=== PATIENT | male | born 1960 | race Caucasian/White ===

== ENCOUNTER 2021-04-14 07:44 | Outpatient (REF) | payer BC, SELFPAY ==
--- NOTE | ~2021-04-14 | XR_ITS ---
EXAMINATION: XR CERVICAL SPINE CLINICAL INFORMATION: Neck pain. COMPARISON: None TECHNIQUE: 3 views of the cervical spine were obtained. FINDINGS: There is mild rightward tilting cervical spine on frontal view with normal cervical lordosis. The vertebral bodies are normal in height. There is no cervical vertebral compression, disc narrowing, spondylolisthesis, or destructive process. No prevertebral soft tissue swelling. No erosive changes. There is some borderline anterior vertebral spurring at C5-C6. XR/XR cervical spine 3V IMPRESSION: Unremarkable examination.
[2021-04-14 11:27] LABS: MANUAL DIFF FLAG NO
[2021-04-14 11:41] LABS: Basophils Percent Auto 0.4 % (0-2); Eosinophils Absolute Auto 0.1 X10*3/uL (0.0-0.4); Hematocrit 43.5 % (42-52); Hemoglobin 14.4 g/dl (14.0-18.0); Imm Gran Abs Auto 0.01 X10*3/uL (0.00-0.03); Imm Gran Pct Auto 0.1 % (0.0-0.4); Lymphocytes Absolute Auto 3.4 X10*3/uL (1.2-4.9); Mean Corpuscular HGB Conc 33.1 g/dl (31.0-36.0); Mean Corpuscular Hemoglobin 32.1 pg (27.0-33.0); Mean Corpuscular Volume 96.9 fL (80-98); Mean Platelet Volume 12.1 fL (9.4-12.4); Monocytes Absolute Auto 0.5 X10*3/uL (0.1-1.2); Neutrophils Absolute Auto 2.7 X10*3/uL (2.0-8.3); Neutrophils Percent Auto 40.5 % (45-73); Platelet Count 232 X10*3/uL (160-400); Red Blood Count 4.49 X10*6/uL (4.60-5.80); Red Cell Distribution Width 13.5 % (11.0-16.0); White Blood Count 6.7 X10*3/uL (4.8-10.8)
[2021-04-14 11:53] LABS: Alanine Aminotransferase 14 U/L (0-40); Albumin Level 4.3 g/dL (3.5-5.0); Alkaline Phosphatase 45 U/L (39-117); Anion Gap 9 (12-20); Aspartate Amino Transferase 17 U/L (5-37); Bilirubin Total 0.5 mg/dL (0.0-1.0); Blood Urea Nitrogen 14 mg/dL (9-16); Calcium 8.7 mg/dL (8.4-10.2); Carbon Dioxide 31 mmol/L (22-29); Chloride 105 mmol/L (96-108); Cholesterol 137 mg/dL; Estimated Glomerular Filt Rate > 60; Glucose Fasting 92 mg/dL (60-99); HDL Cholesterol 51 mg/dL; LDL Cholesterol Calculated 77 mg/dl; Potassium 4.5 mmol/L (3.3-5.1); Sodium 140 mmol/L (135-145); Total Protein 6.8 g/dL (6.5-8.0); Triglycerides 46 mg/dL
[2021-04-14 12:11] LABS: Thyroid Stimulating Hormone 1.01 uIU/mL (0.32-4.0); Vitamin D 25-OH Total 26.6 ng/mL (>30)
[2021-04-14 12:27] LABS: Vitamin B12 710 pg/mL (200-900)
[2021-04-19 12:46] LABS: Testosterone, Total 450 ng/dL (250-1100)
== END 2021-04-14 07:45 | disposition home or self-care (01) ==
LOC: HO.HMGCX 07:44
PROVIDERS: PCP Internal Medicine; Visit Provider Nurse Practitioner Family
DX: E29.1 Testicular hypofunction (principal); R63.6 Underweight; M54.2 Cervicalgia
CPT/HCPCS: 36415; 72040; 80053; 80061; 82306; 82607; 82746; 84134; 84403; 84443; 85025

== ENCOUNTER 2023-04-10 09:16 | Outpatient (AMB) | payer OTHER, SELFPAY ==
--- NOTE | 2023-04-10 10:15 | AM.OFFWIN_ITS ---
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 Reporting symptoms of sinus congestion, sore throat and difficulty swallowing. Low-grade fever. No family member is sick. No recent travel. Patient reports symptoms of malaise and fatigue. PFSH Social History Patient Tobacco Use Status: Never used Tobacco Physical Exam Vital Signs: Last Vital Signs Temp 97.9 F 04/10/23 10:22 Pulse 64 04/10/23 10:22 BP 108/56 L 04/10/23 10:22 Pulse Ox 96 04/10/23 10:22 Oxygen Delivery Method Room Air 04/10/23 10:22 Const General: cooperative and healthy appearing Nutritional Appearance: well nourished Orientation/consciousness: patient oriented x3 Limitations: no limitations HEENT Head: Yes normal to inspection Eyes General: appearance normal, both eyes and all related structures Neck Neck: Yes normal visual inspection Chest Chest palpation & inspection: normal palpation of entire chest wall Resp Effort & Inspection: normal respiratory effort Neuro General: patient oriented x3 Results AMB Rapid Strep AMB Rapid Strep Negative Last Edit by FELICIA Cordero on 04/10/23 10:32 Results Reviewed Results Reviewed: Laboratory Last Values Strep Scn Rapid Clinic Negative 04/10/23 10:31 Assessment & Plan Assessment & Plan (1) Upper respiratory tract infection: Code(s): J06.9 - Acute upper respiratory infection, unspecified Plan: Increase fluid intake. Tylenol for aches and pains. If symptoms worsen, follow-up here for a recheck. Strep test is negative. No antibiotics needed. Orders: Orders AMB Rapid Strep Screen Today Z13.9 - Encounter for screening, unspecified Coding Level of Care Code Est Pt Level 3 (73037) Diagnoses Upper respiratory tract infection J06.9
[2023-04-10 10:22] VITALS: BP 108/56; PULSE 64; TEMP 36.6; O2SAT 96
== END 2023-04-10 10:44 | disposition home or self-care (01) ==
PROVIDERS: PCP Internal Medicine; Visit Provider Internal Medicine
DX: Z13.9 Encounter for screening, unspecified (principal); J06.9 Acute upper respiratory infection, unspecified
CPT/HCPCS: 87880; 99213

== ENCOUNTER 2023-10-18 14:20 | Outpatient (AMB) | payer OTHER, SELFPAY ==
[2023-10-18 14:32] VITALS: BP 100/62; PULSE 68; O2SAT 98; BMI 19.8
--- NOTE | 2023-10-18 14:32 | MHC.PC.OV ---
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 Intake Note: Pt is here to est care Pt had colon screening with Dr Voss 3 years and he thinks he is on the 10 year plan Allergies No Known Allergies Allergy (Unverified 10/18/23 14:34) Medication List - Last Reconciled 10/18/23 by FAIZA Ahumada- testosterone cypionate 200 mg IM Q3W Tobacco use date assessed: 10/18/23 Dental Screening Dental Screen Date: 10/18/23 Did you have a dental visit in the last 12 months?: Yes Did you have a dental problem in the last 6 months where you did not have access to dental care?: No HPI 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 Will order labs. colon screen approx 3 years ago, i'm on the ten year list . Pt reports having a gluten allergy . Pt denies any n/v/d currently. He is upset because i cannot gain weight . Pt denied ever smoking. testicular cancer Hx. both testicles were removed 42 years ago, on testosterone injections. I did explain to him, having low T, which could stall muscle growth. Pt has a urologist, working with his Testosterone therapy. Pt reports several skin lesions throughout his entire body. Will refer to derm. [facility] Medical History (Updated 10/18/23 @ 17:46 by JOSE Ahumada) Low testosterone Social History Housing: House Patient Tobacco Use Status: Never used Tobacco e-Cigarette/Vaping Use: Never Used Second Hand Smoke Exposure: No service: No Current occupational status: employed Current occupation: [employer] Current occupational exposures/hazards: No Cognitive needs: No Hearing needs: No Vision needs: No Questionnaire PHQ-9 Over the last 2 weeks, how often have you been bothered by any of the following problems? 1. Little interest or pleasure in doing things: not at all 2. Feeling down, depressed, or hopeless: several days 3. Trouble falling or staying asleep, or sleeping too much: not at all 4. Feeling tired or having little energy: more than half the days 5. Poor appetite or overeating: not at all 6. Feeling bad about yourself - or that you are a failure or have let yourself or your family down: not at all 7. Trouble concentrating on things, such as reading the newspaper or watching television: not at all 8. Moving or speaking so slowly that other people could have noticed. Or the opposite - being so fidgety or restless that you have been moving around a lot more than usual: not at all 9. Thoughts that you would be better off or of hurting yourself in some way: not at all Total score: 3 Depression Screening Interpretation: Negative Depression Screening Done: Yes 78753 - PHQ-9 Billing: Yes Source: Developed by Drs. Viktor Cruz, Cecy Jauregui, Stevo Kraft and colleagues, with an educational ino from [employer]. Thrive Questionnaire Date Thrive assessed: 10/18/23 I am a: Patient What is your living situation today?: I have a steady place to live Within the past 12 months, did the food you bought not last and you didn't have the money to get more?: Never true Within the past 12 months, did you worry whether your food would run out before you got money to buy more?: Never true Do you have trouble paying for medicines?: No Do you have trouble getting transportation to medical appointments?: No Do you have trouble paying your heating and electricity bill?: No Do you have trouble taking care of your child, family member or friend?: No Do you have trouble with day-to-day activities such as bathing, preparing meals, shopping, managing finances, etc.?: No Are you currently unemployed and looking for a job?: No Are you interested in more education?: No Currently or been in a relationship where the following occur: no concerns reported THRIVE Score: 0 AUDIT C Alcohol Use Questionnaire (AUDIT-C) 1. How often do you have a drink containing alcohol?: 2-4 times a month 2. How many drinks containing alcohol do you have on a typical day when you are drinking?: 1 or 2 3. How often do you have six or more drinks on one occasion?: Never Total Score: 2 Score Reviewed/Action Taken: Yes REANNA-7 AMB Questionnaire REANNA-7 Date REANNA - 7 assessed: 10/18/23 Feeling nervous, anxious, or on edge: 0 = Not at all Not being able to stop or control worryin = Not at all Worrying too much about different things: 1 = Several days Trouble relaxin = Not at all Being so restless that it is hard to sit still: 0 = Not at all Becoming easily annoyed or irritable: 1 = Several days Feeling afraid as if something awful might happen: 1 = Several days Total REANNA-7 score (0-4 normal; 5-9 mild; 10-14 moderate; 15-21 severe): 3 Source: Developed by Drs. Viktor Cruz, Cecy Jauregui, Stevo Kraft and colleagues, with an educational ino from [employer]. REANNA-7 Assessment Billing REANNA-7 Assessment Tool: REANNA-7 Assessment 45451 Review of Systems Const Denies chills and Denies fever(s) Eyes Denies blurry vision ENT Denies vertigo, Denies dizziness and Denies sore throat Card Denies chest pain at rest, Denies chest pain with activity, Denies diaphoresis, Denies dyspnea and Denies dyspnea on exertion Resp Denies cough, Denies dyspnea, Denies dyspnea on exertion and Denies wheezing GI Denies abdominal pain, Denies melena, Denies hematochezia, Denies constipation, Denies diarrhea and Denies loose stools Denies hematuria Musc Denies numbness and Denies tingling Skin/Breast Denies lesions Neuro Denies vertigo, Denies dizziness, Denies numbness and Denies tingling Psych Denies anxiety, Denies depression, Denies homicidal ideation, Denies suicidal ideation and Denies other (substance abuse) Aller/Immun Denies wheezing Physical exam (Primary Care) Vital Signs: Last Vital Signs Pulse 68 10/18/23 14:32 BP 100/62 10/18/23 14:32 Pulse Ox 98 10/18/23 14:32 Oxygen Delivery Method Room Air 10/18/23 14:32 BMI result Body Mass Index 19.8 Tobacco/Smoking Status: Tobacco use Status Tobacco use date assessed 10/18/23 10/18/23 14:39 Patient Tobacco Use Status Never used Tobacco 10/18/23 14:39 e-Cigarette/Vaping Use Never Used 10/18/23 14:39 PHQ-9: PHQ-9 Score PHQ-9: Total score 3 10/18/23 15:28 Depression Screening Interpretation: Negative Thrive Assessment: Date of Thrive Assessment Date Thrive assessed 10/18/23 10/18/23 15:28 Currently or been in a relationship where the following occur: no concerns reported Const Other: skinny stature General: cooperative Nutritional Appearance: well nourished Orientation/consciousness: patient oriented x3 HENMT Head: Yes normal to inspection, Yes normocephalic and Yes atraumatic Ears: TM's normal bilaterally Eyes General: appearance normal, both eyes and all related structures Alignment and Position: alignment normal and position normal Neck Neck: Yes normal visual inspection and Yes no lymphadenopathy Thyroid: Thyroid normal Resp Effort & Inspection: normal respiratory effort Auscultation: clear to auscultation bilaterally Cardio Rate: regular rate Rhythm: regular rhythm Heart sounds: S1 normal heart sound present, S2 normal heart sound present and no murmurs GI Palpation (GI): Soft to palpation and nontender Auscultation: normal bowel sounds Skin Other: several lesions throughout entire body/upper torso, dry, ranging from skin color to darker, some are more papular, some are macular, mostly round Rashes: no rashes Neuro General: patient oriented x3 Romberg Test: Negative Psych Appearance: grossly normal Mental Status: mental status grossly normal Speech and movement: Normal speech and movement present Affect: normal affect Attitude: cooperative Thought process: Normal thought process present Thought content: Normal thought content present Insight: Good insight present (Psych) Judgement: Good judgement present (Psych) Assessment and Plan Assessment & Plan (1) Skin lesions: Code(s): L98.9 - Disorder of the skin and subcutaneous tissue, unspecified Plan: Referred to derm (2) Vitamin D deficiency: Code(s): E55.9 - Vitamin D deficiency, unspecified (3) Physical exam: Code(s): Z00.00 - Encounter for general adult medical examination without abnormal findings Plan The patient agreed to the use of a medical device sales for this encounter. Scribed for JOSE Villanueva by Christel Pantoja medical device sales, on 10/18/2023 at 14:55 EST. Orders: Orders Complete Blood Count Auto Diff Today R79.89 - Other specified abnormal findings of blood chemistry Comprehensive [place]. Panel Fast Today R79.89 - Other specified abnormal findings of blood chemistry TSH reflex Free T4 Today R79. - Other specified abnormal findings of blood chemistry UA CC w/rflx Micro + Cult Today R7 - Other specified abnormal findings of blood chemistry Lipid Panel Today R7 - Other specified abnormal findings of blood chemistry Vitamin D 25-OH Total Today E55.9 - Vitamin D deficiency, unspecified Referrals Dermatology Referral L98.9 - Disorder of the skin and subcutaneous tissue, unspecified Coding Level of Care Code New Pt Prev Care 40-64y(21242) Diagnoses Skin lesions L98.9 Vitamin D deficiency E55.9 Physical exam Z00.00 Additional Codes REANNA-7 Assessment Billing - REANNA-7 Assessment Tool: REANNA-7 Assessment [id number] ([id number])
== END 2023-10-18 16:41 | disposition home or self-care (01) ==
PROVIDERS: PCP Internal Medicine; Visit Provider Nurse Practitioner Family
DX: L98.9 Disorder of the skin and subcutaneous tissue, unspecified (principal); E55.9 Vitamin D deficiency, unspecified; Z00.00 Encounter for general adult medical examination without abnormal findings
CPT/HCPCS: 99386

== ENCOUNTER 2023-11-17 06:41 | Outpatient (REF) | payer OTHER, SELFPAY ==
[2023-11-17 11:06] LABS: MANUAL DIFF FLAG NO
[2023-11-17 11:13] LABS: Basophils Percent Auto 0.4 % (0-2); Eosinophils Absolute Auto 0.1 X10*3/uL (0.0-0.4); Eosinophils Percent Auto 0.8 % (0-4); Hematocrit 43.2 % (42.0-52.0); Hemoglobin 14.3 g/dl (14.0-18.0); Imm Gran Abs Auto 0.01 X10*3/uL (0.00-0.03); Imm Gran Pct Auto 0.1 % (0.0-0.4); Lymphocytes Absolute Auto 4.7 X10*3/uL (1.2-4.9); Lymphocytes Percent Auto 58.6 % (20-40); Mean Corpuscular HGB Conc 33.1 g/dl (31.0-36.0); Mean Corpuscular Hemoglobin 32.5 pg (27.0-33.0); Mean Corpuscular Volume 98.2 fL (80.0-98.0); Mean Platelet Volume 11.3 fL (9.4-12.4); Monocytes Absolute Auto 0.5 X10*3/uL (0.1-1.2); Monocytes Percent Auto 6.5 % (2-11); Neutrophils Absolute Auto 2.7 x10*3/uL (2.0-8.3); Neutrophils Percent Auto 33.6 % (45-73); Platelet Count 246 X10*3/uL (160-400); Red Cell Distribution Width 13.6 % (11.0-16.0)
[2023-11-17 11:30] LABS: Appearance Urine Clear; Color Urine Yellow; Glucose Urine UA Negative (Negative); Leukocyte Esterase Urine Negative (Negative); Nitrite Urine Negative (Negative); PH 8.5 (5.0-9.0); Specific Gravity - Urine <= 1.005 (1.005-1.025); Urine Blood Negative (Negative); Urine Ketones Negative (Negative); Urine Protein Negative (Neg-Trace)
[2023-11-17 11:41] LABS: Alanine Aminotransferase 18 U/L (0-40); Albumin Level 4.2 g/dL (3.5-5.0); Alkaline Phosphatase 49 U/L (39-117); Anion Gap 11 (12-20); Aspartate Amino Transferase 24 U/L (5-37); Bilirubin Total 0.4 mg/dL (0.0-1.0); Blood Urea Nitrogen 11 mg/dL (9-16); Calcium 8.9 mg/dL (8.4-10.2); Carbon Dioxide 29 mmol/L (22-29); Chloride 105 mmol/L (96-108); Cholesterol 150 mg/dL (<200); Estimated Glomerular Filt Rate > 60; Glucose Fasting 75 mg/dL (60-99); HDL Cholesterol 57 mg/dL (>40); LDL Cholesterol Calculated 84 mg/dL (<100); Potassium 4.5 mmol/L (3.3-5.1); Sodium 140 mmol/L (135-145); Total Protein 6.8 g/dL (6.5-8.0); Triglycerides 47 mg/dL (<150)
[2023-11-17 11:58] LABS: TSH reflex Free T4 1.31 uIU/mL (0.32-4.0); Vitamin D 25-OH Total 70.1 ng/mL (>30)
== END 2023-11-17 06:42 | disposition home or self-care (01) ==
LOC: HO.HMGCLDS 06:41
PROVIDERS: PCP Nurse Practitioner Family; Visit Provider Nurse Practitioner Family
DX: R79.89 Other specified abnormal findings of blood chemistry (principal); E55.9 Vitamin D deficiency, unspecified
CPT/HCPCS: 36415; 80053; 80061; 81003; 82306; 84443; 85025

== ENCOUNTER 2024-02-02 06:57 | Outpatient (REF) | payer OTHER, SELFPAY ==
[2024-02-02 11:14] LABS: Hematocrit 44.1 % (42.0-52.0); Hemoglobin 14.6 g/dl (14.0-18.0); Mean Corpuscular HGB Conc 33.1 g/dl (31.0-36.0); Mean Corpuscular Hemoglobin 32.4 pg (27.0-33.0); Mean Corpuscular Volume 97.8 fL (80.0-98.0); Mean Platelet Volume 11.6 fL (9.4-12.4); Platelet Count 229 X10*3/uL (160-400); Red Blood Count 4.51 X10*6/uL (4.60-5.80); Red Cell Distribution Width 13.2 % (11.0-16.0); White Blood Count 8.8 X10*3/uL (4.8-10.8)
[2024-02-02 11:46] LABS: Prostate Specific Antigen 2.78 ng/mL (<0.05-4.0)
[2024-02-02 11:56] LABS: Atypical Lymph Absolute Manual 0.5 x10*3/uL; Atypical Lymphs Percent Manual 6 % (0-6); Band Neutrophils Percent 0 % (3-5); Eosinophils Absolute Manual 0.1 X10*3/uL (0.0-0.4); Eosinophils Percent Manual 1 % (0-4); Lymphocytes Percent Manual 57 % (20-40); Monocytes Absolute Manual 0.3 X10*3/uL (0.1-1.2); Monocytes Percent Manual 3 % (2-11); Neutrophils Absolute Manual 2.9 X10*3/uL (2.0-8.3); Neutrophils Percent Manual 33 % (45-73)
[2024-02-02 11:57] LABS: Platelet Estimate NORMAL (NORMAL); Platelet Morphology Comment NORMAL; RBC Morphology NORMAL; Smudge Cells PRESENT
[2024-02-02 12:10] LABS: Prostate Specific Antigen Scr 2.88 ng/mL (<0.05-4.0)
[2024-02-07 15:59] LABS: Testosterone, Total 1109 ng/dL (250-1100)
== END 2024-02-02 06:58 | disposition home or self-care (01) ==
LOC: HO.HMGCLDS 06:57
PROVIDERS: PCP Nurse Practitioner Family; Visit Provider Physician Assistant
DX: Z12.5 Encounter for screening for malignant neoplasm of prostate (principal); E29.1 Testicular hypofunction
CPT/HCPCS: 36415; 84153; 84403; 85007; 85027

== ENCOUNTER 2024-04-14 15:17 | Outpatient (AMB) | payer OTHER, SELFPAY ==
[2024-04-14 15:26] VITALS: BP 108/74; PULSE 61; O2SAT 99; BMI 20.1
--- NOTE | 2024-04-14 15:26 | MHC.PC.OV ---
Vital Signs 04/14/24 15:26 Height 5 ft 9 in Weight 136 lb 2 oz BMI 20.1 BP 108/74 Blood Pressure Location Lt brachial Position Sitting Pulse 61 Pulse Source Pulse Oximeter Pulse Oximetry (%) 99 Oxygen Delivery Method Room Air Intake Visit Reasons: 6 Month F/U Labs Allergies No Known Allergies Allergy (Verified 04/14/24 15:27) Tobacco use date assessed: 04/14/24 Dental Screening Dental Screen Date: 04/14/24 Did you have a dental visit in the last 12 months?: Yes Did you have a dental problem in the last 6 months where you did not have access to dental care?: No Was dental information given to patient?: Patient has dentist HPI 6 Month F/U Labs HPI Details Pt reports bloating. This has been ongoing for quite some time. Pt has taken fiber gummies which make things worse. He also has constipation with certain foods such as meat. Recommended pre/probiotic. Pt is following up with GI, recommended possible endoscopy if this continues. Pt is interested in food allergy testing, will order RAST testing. Denies fever, chills, and N/V. PFSH Medical History Low testosterone Social History Housing: House Patient Tobacco Use Status: Never used Tobacco e-Cigarette/Vaping Use: Never Used Second Hand Smoke Exposure: No service: No Current occupational status: employed Current occupation: [email or web address] Current occupational exposures/hazards: No Cognitive needs: No Hearing needs: No Vision needs: No Questionnaire PHQ-9 Over the last 2 weeks, how often have you been bothered by any of the following problems? 1. Little interest or pleasure in doing things: not at all 2. Feeling down, depressed, or hopeless: not at all 3. Trouble falling or staying asleep, or sleeping too much: not at all 4. Feeling tired or having little energy: several days 5. Poor appetite or overeating: not at all 6. Feeling bad about yourself - or that you are a failure or have let yourself or your family down: not at all 7. Trouble concentrating on things, such as reading the newspaper or watching television: not at all 8. Moving or speaking so slowly that other people could have noticed. Or the opposite - being so fidgety or restless that you have been moving around a lot more than usual: not at all 9. Thoughts that you would be better off or of hurting yourself in some way: not at all Total score: 1 Depression Screening Interpretation: Negative Depression Screening Done: Yes 21027 - PHQ-9 Billing: Yes Source: Developed by Drs. Viktor Cruz, Cecy Jauregui, Stevo Kraft and colleagues, with an educational nio from [employer]. Thrive Questionnaire Date Thrive assessed: 04/14/24 I am a: Patient What is your living situation today?: I have a steady place to live Within the past 12 months, did the food you bought not last and you didn't have the money to get more?: Never true Within the past 12 months, did you worry whether your food would run out before you got money to buy more?: Never true Do you have trouble paying for medicines?: No Do you have trouble getting transportation to medical appointments?: No Do you have trouble paying your heating and electricity bill?: No Do you have trouble taking care of your child, family member or friend?: No Do you have trouble with day-to-day activities such as bathing, preparing meals, shopping, managing finances, etc.?: No Are you currently unemployed and looking for a job?: No Are you interested in more education?: No Please select the resources that you would like help with: Housing/Snf Currently or been in a relationship where the following occur: No concerns reported THRIVE Score: 0 AUDIT C Alcohol Use Questionnaire (AUDIT-C) 1. How often do you have a drink containing alcohol?: 2-4 times a month 2. How many drinks containing alcohol do you have on a typical day when you are drinking?: 1 or 2 3. How often do you have six or more drinks on one occasion?: Never Total Score: 2 Score Reviewed/Action Taken: Yes REANNA-7 AMB Questionnaire REANNA-7 Date REANNA - 7 assessed: 04/14/24 Feeling nervous, anxious, or on edge: 0 = Not at all Not being able to stop or control worryin = Not at all Worrying too much about different things: 0 = Not at all Trouble relaxin = Not at all Being so restless that it is hard to sit still: 0 = Not at all Becoming easily annoyed or irritable: 0 = Not at all Feeling afraid as if something awful might happen: 0 = Not at all Total REANNA-7 score (0-4 normal; 5-9 mild; 10-14 moderate; 15-21 severe): 0 Source: Developed by Drs. Viktor Cruz, Cecy Jauregui, Stevo Kraft and colleagues, with an educational ino from [employer]. REANNA-7 Assessment Billing REANNA-7 Assessment Tool: REANNA-7 Assessment 17386 Review of Systems Const Reports as per HPI Physical exam (Primary Care) Vital Signs: Last Vital Signs Pulse 61 04/14/24 15:26 BP 108/74 04/14/24 15:26 Pulse Ox 99 04/14/24 15:26 Oxygen Delivery Method Room Air 04/14/24 15:26 BMI result Body Mass Index 20.1 Tobacco/Smoking Status: Tobacco use Status Tobacco use date assessed 04/14/24 04/14/24 15:27 Patient Tobacco Use Status Never used Tobacco 04/14/24 15:27 e-Cigarette/Vaping Use Never Used 04/14/24 15:27 PHQ-9: PHQ-9 Score PHQ-9: Total score 1 04/14/24 15:41 Depression Screening Interpretation: Negative Thrive Assessment: Date of Thrive Assessment Date Thrive assessed 04/14/24 04/14/24 15:27 Currently or been in a relationship where the following occur: No concerns reported Const General: cooperative Orientation/consciousness: patient oriented x3 Resp Effort & Inspection: normal respiratory effort Auscultation: clear to auscultation bilaterally Cardio Rate: regular rate Rhythm: regular rhythm Heart sounds: S1 normal heart sound present and S2 normal heart sound present GI Other: BS present, no tenderness with palpation, minimal distention, soft Neuro General: patient oriented x3 Extrem Right lower extremity: no edema Left lower extremity: no edema Psych Appearance: grossly normal Mental Status: mental status grossly normal Speech and movement: Normal speech and movement present Affect: normal affect Attitude: cooperative Thought process: Normal thought process present Thought content: Normal thought content present Insight: Good insight present (Psych) Judgement: Good judgement present (Psych) Assessment and Plan Assessment & Plan (1) Bloating: Code(s): R14.0 - Abdominal distension (gaseous) Plan The patient agreed to the use of a biomedical instrument technician for this encounter. Scribed for JOSE Villanueva by Christel Pantoja biomedical instrument technician, on 04/14/2024 at 15:40 EST. Orders: Orders TSH reflex Free T4 Today R14.0 - Abdominal distension (gaseous) Rast Allergen Today R14.0 - Abdominal distension (gaseous) Transglutaminase IgA Today R14.0 - Abdominal distension (gaseous) Endomysial IgA rflx Titer Today R14.0 - Abdominal distension (gaseous) Complete Blood Count Auto Diff Today R14.0 - Abdominal distension (gaseous) Comprehensive Met. Panel Today R14.0 - Abdominal distension (gaseous) Coding Level of Care Code Est Pt Level 3 (52921) Diagnoses Bloating R14.0 Additional Codes REANNA-7 Assessment Billing - REANNA-7 Assessment Tool: REANNA-7 Assessment [id number] ([id number])
== END 2024-04-14 16:02 | disposition home or self-care (01) ==
PROVIDERS: PCP Internal Medicine; Visit Provider Nurse Practitioner Family
DX: R14.0 Abdominal distension (gaseous) (principal)
CPT/HCPCS: 99213

== ENCOUNTER 2024-06-28 07:58 | Outpatient (REF) | payer OTHER, SELFPAY ==
[2024-06-28 11:21] LABS: Basophils Percent Auto 0.4 % (0-2); Eosinophils Absolute Auto 0.1 X10*3/uL (0.0-0.4); Eosinophils Percent Auto 0.8 % (0-4); Hemoglobin 14.3 g/dl (14.0-18.0); Imm Gran Abs Auto 0.02 X10*3/uL (0.00-0.03); Imm Gran Pct Auto 0.2 % (0.0-0.4); Lymphocytes Percent Auto 62.1 % (20-40); MANUAL DIFF FLAG SCAN; Mean Corpuscular HGB Conc 33.3 g/dl (31.0-36.0); Mean Corpuscular Hemoglobin 32.6 pg (27.0-33.0); Mean Corpuscular Volume 97.9 fL (80.0-98.0); Mean Platelet Volume 11.4 fL (9.4-12.4); Monocytes Absolute Auto 0.4 X10*3/uL (0.1-1.2); Monocytes Percent Auto 3.9 % (2-11); Neutrophils Absolute Auto 3.2 x10*3/uL (2.0-8.3); Neutrophils Percent Auto 32.6 % (45-73); Platelet Count 238 X10*3/uL (160-400); Red Blood Count 4.39 X10*6/uL (4.60-5.80); Red Cell Distribution Width 12.9 % (11.0-16.0); SCAN SMEAR FLAG 1; White Blood Count 9.7 X10*3/uL (4.8-10.8)
[2024-06-28 12:14] LABS: Alanine Aminotransferase 13 U/L (0-40); Albumin Level 4.3 g/dL (3.5-5.0); Alkaline Phosphatase 56 U/L (39-117); Anion Gap 10 (12-20); Aspartate Amino Transferase 19 U/L (5-37); Bilirubin Total 0.5 mg/dL (0.0-1.0); Blood Urea Nitrogen 10 mg/dL (9-16); Calcium 8.8 mg/dL (8.4-10.2); Carbon Dioxide 31 mmol/L (22-29); Chloride 105 mmol/L (96-108); Estimated Glomerular Filt Rate > 60; Glucose Random 117 mg/dL (60-115); Potassium 4.6 mmol/L (3.3-5.1); Sodium 141 mmol/L (135-145)
[2024-06-28 12:57] LABS: SLIDE REVIEW VERIFIED
[2024-07-01 13:47] LABS: Transglutaminase IgA <1.0 U/mL
[2024-07-02 23:24] LABS: Endomysial IgA Antibody Negative (Negative)
[2024-07-04 10:48] LABS: Testosterone, Free 158.5 pg/mL (35.0-155.0); Testosterone, Total 1268 ng/dL (250-1100)
[2024-07-07 11:05] LABS: Immunoglobulin A 288
== END 2024-06-28 07:59 | disposition home or self-care (01) ==
LOC: HO.HMGCLDS 07:58
PROVIDERS: PCP Nurse Practitioner Family; Referring Provider Physician Assistant; Visit Provider Nurse Practitioner Family
DX: R14.0 Abdominal distension (gaseous) (principal); E29.1 Testicular hypofunction; T78.40XA Allergy, unspecified, initial encounter; X58.XXXA Exposure to other specified factors, initial encounter
CPT/HCPCS: 36415; 80053; 82784; 84402; 84403; 84443; 85025; 86003; 86231; 86364

== ENCOUNTER 2024-09-13 07:38 | Outpatient (REF) | payer OTHER, SELFPAY ==
[2024-09-13 11:20] LABS: Mean Corpuscular HGB Conc 33.3 g/dl (31.0-36.0); Mean Corpuscular Hemoglobin 32.4 pg (27.0-33.0); Mean Corpuscular Volume 97.2 fL (80.0-98.0); Mean Platelet Volume 11.7 fL (9.4-12.4); Platelet Count 216 X10*3/uL (160-400); Red Blood Count 4.32 X10*6/uL (4.60-5.80); Red Cell Distribution Width 13.2 % (11.0-16.0)
[2024-09-13 11:29] LABS: Alanine Aminotransferase 22 U/L (0-40); Albumin Level 4.1 g/dL (3.5-5.0); Alkaline Phosphatase 53 U/L (39-117); Aspartate Amino Transferase 24 U/L (5-37); Bilirubin Direct 0.1 mg/dL (0.0-0.5); Bilirubin Total 0.3 mg/dL (0.0-1.0); Total Protein 6.8 g/dL (6.5-8.0)
[2024-09-13 11:48] LABS: PSA,Total (Free>4and<10) 2.77 ng/mL (0.00-4.00)
[2024-09-19 16:28] LABS: Testosterone, Free 63.9 pg/mL (35.0-155.0); Testosterone, Total 515 ng/dL (250-1100)
== END 2024-09-13 07:39 | disposition home or self-care (01) ==
LOC: HO.HMGCLDS 07:38
PROVIDERS: PCP Nurse Practitioner Family; Visit Provider Physician Assistant
DX: E29.1 Testicular hypofunction (principal); Z12.5 Encounter for screening for malignant neoplasm of prostate
CPT/HCPCS: 36415; 80076; 84153; 84402; 84403; 85027

== ENCOUNTER 2025-03-09 14:14 | Outpatient (AMB) | payer OTHER, SELFPAY ==
[2025-03-09 14:19] VITALS: BP 88/52; PULSE 94; TEMP 38; O2SAT 93; BMI 19.4
--- NOTE | 2025-03-09 14:19 | MHC.OFFWIV ---
Intake Vital Signs 03/09/25 14:19 03/09/25 14:41 Height 5 ft 9 in Weight 131 lb 8 oz BMI 19.4 BP 88/52 L 96/58 L Blood Pressure Location Lt brachial Lt brachial Position Sitting Sitting Pulse 94 110 H Pulse Source Pulse Oximeter Pulse Oximeter Temp 100.4 F Temp Source Oral Pulse Oximetry (%) 93 96 Oxygen Delivery Method Room Air Room Air Intake Visit Reasons: EP Upper URI, Covid 15 days ago Patient Tobacco Use Status: Never used Tobacco Allergies No Known Allergies Allergy (Verified 03/09/25 14:23) Do you need a note to return to daycare/school/sports/work: No HPI HPI Comments History of Present Illness Details History - The patient is a 64-year-old male with no significant past med hx presenting with suspected COVID-19 infection, he did not test at home or a clinic. - Symptoms began on February 22 with cough and congestion and cannot get rid of it. - He experienced loss of taste and smell, along with sinus pain. - He denies any shortness of breath or wheezing. - He denies any ear pain or sinus pain. - He reports a lack of appetite and has not been eating much recently. - He has experienced fevers but has not measured his temperature. - He had a previous COVID-19 infection and reports similar symptoms during that episode. - He has no history of asthma or COPD. Physical Exam General: Cooperative, healthy appearing, comfortable and no acute distress Orientation/consciousness: Patient oriented x3 Limitations: No limitations Head: Normal to inspection Ears: Hearing grossly normal bilaterally, external ears normal and TM's normal bilaterally Nose: Normal external nose present, Normal nares present and No nasal discharge present Face and sinus: Normal facial exam and Yes sinuses nontender Mouth: Normal oral and palatal mucosa present and moist mucous membranes Throat: Yes tonsils normal, Yes uvula midline. Posterior oropharynx erythema, no exudates Eyes: Appearance normal, both eyes and all related structures Neck: Normal visual inspection, full ROM Respiratory: dim with lower rhonchi. Normal respiratory effort, able to speak in complete sentences, not actively coughing, no respiratory distress, not tachypneic, no tripod positioning and no use of accessory muscles Cardiovascular: tachycardic rate and regular rhythm. Normal S1 and S2 Skin: No rashes or lesions noted Neuro: Patient oriented x3 Extremities: Normal to inspection and Yes no clubbing, cyanosis or edema PFSH Medical History Low testosterone Social History Housing: House Patient Tobacco Use Status: Never used Tobacco e-Cigarette/Vaping Use: Never Used Second Hand Smoke Exposure: No service: No Current occupational status: employed Current occupation: [employer] Current occupational exposures/hazards: No Cognitive needs: No Hearing needs: No Vision needs: No Review of Systems Const All systems reviewed & are unremarkable except as noted in HPI and below Physical Exam Vital Signs: Last Vital Signs Temp 100.4 F 03/09/25 14:19 Pulse 94 03/09/25 14:19 BP 96/58 L 03/09/25 14:41 Pulse Ox 93 03/09/25 14:19 Oxygen Delivery Method Room Air 03/09/25 14:19 BMI result Body Mass Index 19.4 Assessment & Plan Assessment & Plan (1) Lower respiratory infection (e.g., bronchitis, pneumonia, pneumonitis, pulmonitis): Code(s): J22 - Unspecified acute lower respiratory infection Plan: Patient meets Severe Sepsis criteria: Temp 100.4F, BP 88/52 with a repeat of 96/58, heart rate 94 with a repeat of 110 and oxygenation 93% with a repeat of 96% on room air. Lung sounds are dim with bilateral lower lobe slight rhonchi. His hypotension could be because he has not been eating any might just needs some fluids to bump him up but he does need labs to rule out severe sepsis. Imaging to rule out PNA, low suspicion for PE but he needs this ruled out as well. Discussed this with the patient and he agreed to drive himself to the emergency department. He is well-appearing and able to drive and declined an ambulance. Called [facility] ED with expect, spoke with Kajal Aviles PA-C at 3:05pm. Patient was informed and verbally consented to the use of an ambient scribe for clinic note documentation during this visit Coding Level of Care Code Est Pt Level 5 (25315) Diagnoses Lower respiratory infection (e.g., bronchitis, pneumonia, pneumonitis, pulmonitis) J22
[2025-03-09 14:41] VITALS: BP 96/58; PULSE 110; O2SAT 96
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
== END 2025-03-09 15:05 | disposition home or self-care (01) ==
PROVIDERS: PCP Nurse Practitioner Family; Visit Provider Physician Assistant
DX: J22 Unspecified acute lower respiratory infection (principal)

== ENCOUNTER → 2025-03-09 14:14 | Outpatient (BNVA) | payer OTHER, SELFPAY | PROVIDERS: PCP Nurse Practitioner Family; Visit Provider Physician Assistant ==

== ENCOUNTER 2025-03-09 15:34 | Emergency (ER) | payer OTHER, SELFPAY ==
--- NOTE | ~2025-03-09 | XR_ITS ---
EXAMINATION: XR CHEST CLINICAL INFORMATION: cough, SOB COMPARISON: None available. TECHNIQUE: 2 views of the chest were obtained. FINDINGS: The cardiac, hilar, and mediastinal contours are normal. There is airspace opacity in the medial right lower lobe, consistent with pneumonia. The left lung is clear. There is no pneumothorax or pleural effusion. There is no focal osseous or soft tissue abnormality. XR/XR chest 2V IMPRESSION: Right lower lobe pneumonia. No definite effusion. Electronically signed by: Efraín Marks MD 03/09/2025 03:59 PM EDT RP
[2025-03-09 15:37] VITALS: BP 100/61; PULSE 93; RESP 18; TEMP 37.1; O2SAT 94; BMI 19.4
--- NOTE | 2025-03-09 15:40 | ED.GENADULT ---
HPI - General Adult General Chief complaint: Upper Respiratory Symptoms Stated complaint: cough,fever Time Seen by Provider: 03/09/25 16:51 Source: patient, RN notes reviewed and old records reviewed Mode of arrival: ambulatory Limitations: no limitations History of Present Illness ED Provider: Latonya ROLLE narrative: Patient is a 64-year-old male with history of sleep apnea, recently Covid+ 2 weeks ago presenting to the emergency department from PCP office with complaint of ongoing cough and low-grade fevers. Patient states his cough is occasionally productive of white/ yellow sputum. Has had temperatures around 100. PCP referred as patient met sirs criteria with temp of 100.4?, BP of 96/58. Patient denies chest pain or palpitations. MD complaint: cough, fever Onset (ago): week(s) Related Data Home Medications ?Medication ?Instructions ?Recorded ?Confirmed testosterone cypionate 200 mg/mL 200 mg IM Q3W 04/10/23 10/18/23 intramuscular oil Previous Rx's ?Medication ?Instructions ?Recorded amoxicillin 500 mg tablet 1,000 mg (2 x 500 mg) PO TID 5 03/09/25 days #28 tabs azithromycin 250 mg tablet 250 mg PO DAILY 4 days #4 tabs 03/09/25 Allergies Allergy/AdvReac Type Severity Reaction Status Date / Time No Known Allergies Allergy Verified 03/09/25 15:40 Review of Systems Review of Systems: As per HPI Yes all other systems are reviewed and are negative Constitutional: Constitutional: Reports as per HPI [facility] Past Medical History Medical History Low testosterone Social History Social History Housing: House Patient Tobacco Use Status: Never used Tobacco Smoked in Last 30 Days: No e-Cigarette/Vaping Use: Never Used Second Hand Smoke Exposure: No Use of substances other than those prescribed or required for medical reasons: No Advance Directives: No Advance Directives Information Provided: No service: No Current occupational status: employed Current occupation: [employer] Current occupational exposures/hazards: No Cognitive needs: No Hearing needs: No Vision needs: No Physical Exam ED Vital Signs: Vital Signs - 24 hr 03/09/25 15:37 03/09/25 17:56 Temperature 98.8 F 98.1 F Pulse Rate 93 90 Respiratory Rate 18 18 Blood Pressure 100/61 105/71 Pulse Oximetry 94 99 Oxygen Delivery Method Room Air Room Air BMI result Body Mass Index 19.4 Vital signs have been reviewed and appear to be correct. Blood pressure normal. Heart rate normal. Respiratory rate normal. Temperature normal. Oxygen saturation normal. Const General: cooperative, healthy appearing and no acute distress Orientation/consciousness: oriented to person, oriented to place, oriented to time and patient oriented x3 Limitations: no limitations HENMT Head: Yes normocephalic and Yes atraumatic Ears: external ears normal General nose exam: Normal external nose present Face and sinus: Yes face symmetric Mouth: oropharynx normal and moist mucous membranes Throat: Yes uvula midline Eyes Pupils: Equal, round and reactive pupils present Neck Neck: Yes normal visual inspection and Yes supple Resp Effort & Inspection: normal respiratory effort, able to speak in complete sentences and Actively coughing Quality: dry Auscultation: crackles on the right in the lower lung devries Cardio Rate: regular rate Rhythm: regular rhythm Heart sounds: S1 normal heart sound present and S2 normal heart sound present GI Palpation (GI): Soft to palpation and nontender Auscultation: normoactive bowel sounds General: Yes no CVA tenderness Back/Spine/Pelvis Back: no CVA tenderness Skin General skin exam: elasticity normal and turgor normal Neuro General: oriented to person, oriented to place, oriented to time, patient oriented x3, moves all extremities, no focal motor deficits and CN's II-XI intact bilaterally Cranial nerves: Yes Equal, round and reactive pupils present Cognition (Neuro): normal cognition Extrem General: Yes full ROM, Yes no pedal edema and Yes no calf tenderness Psych Mental Status: mental status grossly normal Affect: normal affect Thought process: Normal thought process present Course Course Course Narrative: RME performed by Kajal Aviles PA-C. Patient is a 64 year old assigned male at presenting to the emergency department with a cough and continued fever. Detailed physical exam and review of systems are deferred to the primary counselor. Labs, imaging, and swabs ordered. Patient placed back in the waiting room pending room availability and results. Reevaluation(s) Reevaluation #1: Bonita Valdes PA-C have accepted care of the patient at signed out pending labs and final disposition the patient has pneumonia, he was sent in by primary care due to report of soft blood pressures, fever, he met SIRS criteria. We have not appreciated these findings here in the emergency room. The patient was ambulated he maintained oxygen saturation of 96% on room air, he does not want to be admitted to the hospital if it is not absolutely necessary. Blood cultures and a lactic acid are being obtained now, if the lactic is normal everyone is in agreement that the patient can be managed as an outpatient. He already received oral antibiotics. Labs: Lactic 1.2 Medications Administered Discontinued Medications Generic Name Dose Route Start Last Admin Trade Name Ewa PRN Reason Stop Dose Admin Amoxicillin 1,000 mg 03/09/25 17:03 03/09/25 17:14 Amoxicillin 500 Mg Capsule PO 03/09/25 17:04 1,000 mg ONCE ONE Administration Azithromycin 500 mg 03/09/25 17:03 03/09/25 17:14 Azithromycin 500 Mg Tablet PO 03/09/25 17:04 500 mg ONCE ONE Administration Medical Decision Making Medical Decision Making [facility] Narrative: Patient is a 64-year-old male with history of sleep apnea, recently Covid+ 2 weeks ago presenting to the emergency department from PCP office with complaint of ongoing cough and low-grade fevers. On exam patient is awake, A+Ox3, VS WNL, afebrile, normal neurological exam without focal deficits, physical exam findings as above. BP slightly low, however, compared to prior visits, is not far off baseline. Given reported symptoms and physical exam findings, initial differential includes but is not limited to viral illness, bronchitis, pneumonia. Labs notable for leuokocytosis to 20. X-ray chest notable for right lower lobe pneumonia. My interpretation is in agreement with the radiologist's interpretation. Patient ambulated by myself, maintained saturation of 96-97%. Discussed with patient admission versus discharge on PO antibiotics. Patient would prefer outpatient treatment. Discussed with patient that we will check lactic acid level, if this is ok, he can be discharged home. Patient signed out to NIEVES Oliver pending lactic. Differential Diagnosis Differential Diagnoses: The differential diagnosis associated with the presentation includes as per [facility] Admission/Observation Consideration of admission/observation: Escalation of care including admission/observation considered Patient would have been admitted to the hospital had their work up had any findings where hospital admission was appropriate and their clinical presentation warranted hospital admission. Lab Data [facility] Lab Attestation statement: I reviewed the patient's lab results. As per MDM 03/09/25 17:20 03/09/25 17:20 Labs: Lab Results 03/09/25 03/09/25 Range/Units 17:20 18:24 WBC 20.1 H (4.8-10.8) X10*3/uL RBC 3.73 L (4.60-5.80) X10*6/uL Hgb 12.1 L (14.0-18.0) g/dl Hct 35.4 L (42.0-52.0) % MCV 94.9 (80.0-98.0) fL MCH 32.4 (27.0-33.0) pg MCHC 34.2 (31.0-36.0) g/dl RDW 13.2 (11.0-16.0) % Plt Count 550 H D (160-400) X10*3/uL MPV 9.7 (9.4-12.4) fL Immature Gran % (Auto) 0.3 (0.0-0.4) % Neut % (Auto) 56.1 (45-73) % Lymph % (Auto) 39.2 (20-40) % [place] % (Auto) 4.1 (2-11) % Eos % (Auto) 0.1 (0-4) % Baso % (Auto) 0.2 (0-2) % Lymph # (Auto) 7.9 H (1.2-4.9) X10*3/uL [place] # (Auto) 0.8 (0.1-1.2) X10*3/uL Eos # (Auto) 0.0 (0.0-0.4) X10*3/uL Baso # (Auto) 0.0 (0.0-0.2) X10*3/uL Abs Immat Gran (auto) 0.07 H (0.00-0.03) X10*3/uL Absolute Neuts (auto) 11.3 H (2.0-8.3) x10*3/uL Absolute Nucleated RBC 0.000 (0.0-0.012) X10*3/uL Nucleated RBC % (auto) 0.0 (0.0-0.2) /100WBC Smear Tech's Comments VERIFIED PT 13.5 H (10.9-12.4) SEC INR 1.2 H (0.9-1.1) Sodium 140 (135-145) mmol/L Potassium 4.6 (3.3-5.1) mmol/L Chloride 103 (96-108) mmol/L Carbon Dioxide 29 (22-29) mmol/L Anion Gap 13 (12-20) BUN 12 (9-16) mg/dL Creatinine 0.74 (0.5-1.4) mg/dL Estim Creat Clear Calc 86.1 Estimated GFR > 60 Random Glucose 89 (60-115) mg/dL Lactic Acid 1.2 (0.5-2.0) mmol/L Calcium 8.9 (8.4-10.2) mg/dL Magnesium 2.5 (1.6-2.6) mg/dL Total Bilirubin 0.3 (0.0-1.0) mg/dL AST 31 (5-37) U/L ALT 14 (0-40) U/L Alkaline Phosphatase 64 (39-117) U/L Total Protein 7.0 (6.5-8.0) g/dL Albumin 3.7 (3.5-5.0) g/dL Influenza Type A (PCR) NEGATIVE (Negative) Influenza Type B (PCR) NEGATIVE (Negative) RSV RNA Qual (PCR) NEGATIVE (Negative) SARS-CoV-2 RNA (RT-PCR) NEGATIVE (Negative) Independent Interpretation I performed an independent interpretation of an: Plain X-Ray Interpretation: CXR notable for RLL pneumonia. Radiology Impression Discussion of test interpretation with radiology: I have reviewed the radiologist's reading. Radiologist Impression: XR/XR chest 2V IMPRESSION: Right lower lobe pneumonia. No definite effusion. External Record Review External record reviewed: Inpatient record, Office record and Outpatient record Prescription Management I considered prescription management with: Antibiotic Discharge Plan Discharge Clinical Impression: Right lower lobe pneumonia Patient Disposition: Home, Self-Care Instructions: Community Acquired Pneumonia (DC) Additional Instructions: You were evaluated in the emergency department today for cough and shortness of breath. Your chest x-ray shows evidence of pneumonia. You are being treated with antibiotics, please complete the full course as prescribed. Please call your primary care provider within the next 2-3 days to schedule a follow-up appointment. You will need a repeat chest x-ray to confirm resolution of your pneumonia. Return to the emergency department if you develop worsening shortness of breath, chest pain, palpitations, fever 100.4? F or greater, or any other concerning symptoms. Prescriptions: New amoxicillin 500 mg tablet 1,000 mg PO TID 5 Days Qty: 28 0RF azithromycin 250 mg tablet 250 mg PO DAILY 4 Days Qty: 4 0RF Rx Instructions: start on day 2 of therapy No Action testosterone cypionate 200 mg/mL oil 200 mg IM Q3W Stand Alone Forms: Work/School Release Print Language: Kiswahili
[2025-03-09] MEDS: Amoxicillin 500 MG CAPSULE 1000 MG PO (17:14)
[2025-03-09] MEDS: Azithromycin 500 MG TABLET PO (17:14)
[2025-03-09 17:48] LABS: Basophils Percent Auto 0.2 % (0-2); Eosinophils Percent Auto 0.1 % (0-4); Hematocrit 35.4 % (42.0-52.0); Hemoglobin 12.1 g/dl (14.0-18.0); INTERNATIONAL NORM RATIO 1.2 (0.9-1.1); Imm Gran Abs Auto 0.07 X10*3/uL (0.00-0.03); Imm Gran Pct Auto 0.3 % (0.0-0.4); Lymphocytes Percent Auto 39.2 % (20-40); MANUAL DIFF FLAG SCAN; Mean Corpuscular HGB Conc 34.2 g/dl (31.0-36.0); Mean Corpuscular Hemoglobin 32.4 pg (27.0-33.0); Mean Corpuscular Volume 94.9 fL (80.0-98.0); Mean Platelet Volume 9.7 fL (9.4-12.4); Monocytes Absolute Auto 0.8 X10*3/uL (0.1-1.2); Monocytes Percent Auto 4.1 % (2-11); Neutrophils Absolute Auto 11.3 x10*3/uL (2.0-8.3); Neutrophils Percent Auto 56.1 % (45-73); Platelet Count 550 X10*3/uL (160-400); Prothrombin Time 13.5 SEC (10.9-12.4); Red Blood Count 3.73 X10*6/uL (4.60-5.80); Red Cell Distribution Width 13.2 % (11.0-16.0); SCAN SMEAR FLAG 1; White Blood Count 20.1 X10*3/uL (4.8-10.8)
[2025-03-09 17:50] LABS: Lymphocytes Absolute Auto 7.9 X10*3/uL (1.2-4.9)
[2025-03-09 17:56] VITALS: BP 105/71; PULSE 90; RESP 18; TEMP 36.7; O2SAT 99
[2025-03-09 17:59] LABS: Alanine Aminotransferase 14 U/L (0-40); Albumin Level 3.7 g/dL (3.5-5.0); Alkaline Phosphatase 64 U/L (39-117); Anion Gap 13 (12-20); Aspartate Amino Transferase 31 U/L (5-37); Bilirubin Total 0.3 mg/dL (0.0-1.0); Blood Urea Nitrogen 12 mg/dL (9-16); Calcium 8.9 mg/dL (8.4-10.2); Carbon Dioxide 29 mmol/L (22-29); Chloride 103 mmol/L (96-108); Creatinine Clr Calc Pharmacy 86.1; Estimated Glomerular Filt Rate > 60; Glucose Random 89 mg/dL (60-115); Magnesium 2.5 mg/dL (1.6-2.6); Potassium 4.6 mmol/L (3.3-5.1); Sodium 140 mmol/L (135-145)
[2025-03-09 18:11] LABS: Influenza A PCR NEGATIVE (Negative); Influenza B PCR NEGATIVE (Negative); Resp Syncy Virus RNA Qual PCR NEGATIVE (Negative); SARS COV2 PCR INHOUSE NEGATIVE (Negative)
[2025-03-09 18:28] LABS: SLIDE REVIEW VERIFIED
[2025-03-09 18:45] LABS: Lactic Acid 1.2 mmol/L (0.5-2.0)
--- NOTE | 2025-03-09 19:14 | PC.NURSE ---
assumed care of pt at 1900. report received from Sarah WEBBER.
[2025-03-09 19:35] VITALS: BP 105/71; PULSE 90; RESP 18; TEMP 36.7; O2SAT 99
== END 2025-03-09 19:36 | disposition home or self-care (01) ==
PROVIDERS: Physician Assistant Medical; Registered Nurse Emergency; Emergency Provider Emergency Medicine; PCP Nurse Practitioner Family
DX: J18.1 Lobar pneumonia, unspecified organism (principal); Z03.818 Encounter for observation for suspected exposure to other biological agents ruled out; R05.9 Cough, unspecified; R50.9 Fever, unspecified; R79.1 Abnormal coagulation profile; Z79.899 Other long term (current) drug therapy
CPT/HCPCS: 0241U; 36415; 71046; 80053; 83605; 83735; 85025; 85610; 87040; 99283; 99284

== ENCOUNTER → 2025-03-09 15:41 | Outpatient (BNV) | payer OTHER, SELFPAY | PROVIDERS: Emergency Provider Emergency Medicine; PCP Nurse Practitioner Family; Visit Provider Radiology Diagnostic Radiology | DX: J18.1 Lobar pneumonia, unspecified organism (principal) | CPT/HCPCS: 71046 ==

== ENCOUNTER 2025-03-17 08:23 | Outpatient (AMB) | payer OTHER, SELFPAY ==
--- OUTSIDE RECORDS SUMMARY | 2025-03-17 08:34 | XMS_ITS | Clinical Summary ---
Author Organization [facility] Address [address] [place] [phone] Phone Care Team Providers Care Steel Barrel Reamer Name Role Phone Chinmay Srinivasan NP Primary Care Provider Allergies No known active allergies Medications testosterone cypionate (DEPO-TESTOTERO NE) 200 mg/mL injection Inject 0.5 mL (100 mg total) into the shoulder, thigh, or buttocks every 28 (twenty-eight ) days. 07/13/2024 Active Active Problems Problem Noted Date Diagnosed Date Cancer ([facility] V[facility], [facility] V28) 08/08/2024 Surgical History Surgery Date Site/Laterality Comments COLONOSCOPY Medical History Medical History Date Comments Sleep apnea Bloating Testicle cancer ([facility] V24, [facility] V28) Social History Tobacco Use Types Packs/Day [...] 76 08/08/2024 1:44 PM EST Temperature 36.9 C (98.5 F) 08/08/2024 1:24 PM EST Respiratory Rate 18 08/08/2024 1:44 PM EST [...] to complete this topic Insurance [address] [facility] [place] [phone] [employer] [place] [id number] Care Teams Steel Barrel Reamer Relationship Specialty Start Date End Date Chinmay Srinivasan NP 262 [facility] [place] PCP - General Family Medicine 08/05/24
--- NOTE | 2025-03-17 08:56 | AM.OFFWIN_ITS ---
Intake Vital Signs 03/17/25 08:58 Height 5 ft 9 in Weight 128 lb 4 oz BMI 18.9 BP 99/64 Blood Pressure Location Lt brachial Position Sitting Pulse 60 Pulse Source Pulse Oximeter Temp 98.0 F Temp Source Oral Pulse Oximetry (%) 97 Oxygen Delivery Method Room Air Intake Visit Reasons: EP-lt ear block Patient Tobacco Use Status: Never used Tobacco Adult Literacy Teacher Required: No Allergies No Known Allergies Allergy (Verified 03/17/25 09:03) Do you need a note to return to daycare/school/sports/work: No HPI HPI Comments History of Present Illness Details History of Present Illness - The patient is a 64-year-old male pres enting with concerns of persistent ear blockage following a cold. - He was diagnosed in the lower right lo be last week, treated with Zithromax and amoxicillin, with improved breathing reported. - He has been having a pressure in the l eft ear post-cold, despite ear drops and bulb syringe use. - He has no discharge or bleeding. - He denies fever, chills, chest pain, S OB, abd pain, n/v/d, dizziness, or hearing loss. Physical Exam General: Cooperative, healthy appearing, comfortable, no acute distress and well developed Head: Normal to inspection Ears: No tragus tenderness noted. No mastoid tenderness. Auditory canal is clear, no cerumen or discharge noted. TM is clear, good cone of light, and no loss of bony landmarks. No effusion noted. Nose: Normal external nose present Face and sinus: Normal facial exam. No sinus tenderness noted. Neck: Normal visual inspection and full ROM. No lymphadenopathy noted. Respiratory: Normal respiratory effort and able to speak in complete sentences. Clear to auscultation bilaterally, no w/r/r noted. Cardiovascular: Regular rate and rhythm. Normal S1 and S2 GI: Normal to inspection. Soft to palpation and nontender, nondistended. No guarding noted. Skin: No rashes or lesions noted Patient was informed and verbally consented to the use of an ambient scribe for clinic note documentation during this visit. [facility] Medical History Low testosterone Social History Housing: House Patient Tobacco Use Status: Never used Tobacco e-Cigarette/Vaping Use: Never Used Second Hand Smoke Exposure: No service: No Current occupational status: employed Current occupation: [employer] Current occupational exposures/hazards: No Cognitive needs: No Hearing needs: No Vision needs: No Review of Systems Const All systems reviewed & are unremarkable except as noted in HPI and below Physical Exam Vital Signs: Last Vital Signs Temp 98.0 F 03/17/25 08:58 Pulse 60 03/17/25 08:58 BP 99/64 03/17/25 08:58 Pulse Ox 97 03/17/25 08:58 Oxygen Delivery Method Room Air 03/17/25 08:58 BMI result Body Mass Index 18.9 Assessment & Plan Assessment & Plan (1) Left ear pain: Code(s): H92.02 - Otalgia, left ear Plan Most likely OM vs OE vs effusion vs cerumen impaction Plan - Monitor respiratory status post-pneumonia recovery, ensure completion of antibiotic course. - Evaluate persistent ear blockage; consider ENT referral if symptoms persist. - Tylenol or motrin as needed - Follow up if ear pain continues. Coding Level of Care Code Est Pt Level 3 (02436) Diagnoses Left ear pain H92.02
[2025-03-17 08:58] VITALS: BP 99/64; PULSE 60; TEMP 36.7; O2SAT 97; BMI 18.9
== END 2025-03-17 09:56 | disposition home or self-care (01) ==
PROVIDERS: PCP Nurse Practitioner Family; Visit Provider Physician Assistant Medical
DX: H92.02 Otalgia, left ear (principal)

== ENCOUNTER → 2025-03-17 08:23 | Outpatient (BNVA) | payer OTHER, SELFPAY | PROVIDERS: PCP Nurse Practitioner Family; Visit Provider Physician Assistant Medical | DX: Z13.89 Encounter for screening for other disorder (principal) ==

== ENCOUNTER 2025-04-04 08:48 | Outpatient (REF) | payer OTHER, SELFPAY ==
[2025-04-04 11:31] LABS: Hematocrit 40.8 % (42.0-52.0); Hemoglobin 13.2 g/dl (14.0-18.0); Mean Corpuscular HGB Conc 32.4 g/dl (31.0-36.0); Mean Corpuscular Hemoglobin 31.8 pg (27.0-33.0); Mean Corpuscular Volume 98.3 fL (80.0-98.0); NRBC Abs Auto 0.000 X10*3/uL (0.0-0.012); NRBC Pct Auto 0.0 /100WBC (0.0-0.2); Platelet Count 235 X10*3/uL (160-400); Red Blood Count 4.15 X10*6/uL (4.60-5.80); White Blood Count 10.7 X10*3/uL (4.8-10.8)
[2025-04-04 12:45] LABS: Band Neutrophils Percent 1 % (3-5); Lymphocytes Absolute Manual 6.2 X10*3/uL (1.2-4.9); Lymphocytes Percent Manual 58 % (20-40); Monocytes Absolute Manual 0.3 X10*3/uL (0.1-1.2); Monocytes Percent Manual 3 % (2-11); Neutrophils Absolute Manual 4.2 X10*3/uL (2.0-8.3); Neutrophils Percent Manual 38 % (45-73)
[2025-04-04 12:46] LABS: RBC Morphology NORMAL; Smudge Cells PRESENT
[2025-04-06 13:28] LABS: Free Prostate Spec Ag 0.9 ng/mL; Percent Free Prostate Spec Ag 20 % (calc) (>25)
== END 2025-04-04 08:49 | disposition home or self-care (01) ==
LOC: HO.HMGCLDS 08:48
PROVIDERS: PCP Nurse Practitioner Family; Visit Provider Physician Assistant
DX: E29.1 Testicular hypofunction (principal)
CPT/HCPCS: 36415; 84154; 84403; 85007; 85025; 85027

== ENCOUNTER 2025-04-08 10:12 | Outpatient (REF) | payer OTHER, SELFPAY ==
--- OUTSIDE RECORDS SUMMARY | 2025-04-08 10:44 | XMS_ITS | Clinical Summary ---
Author Organization [facility] Address [address] [place] [phone] Phone Care Team Providers Care Butter Printer Name Role Phone Chinmay Srinivasan NP Primary Care Provider Allergies No known active allergies Medications testosterone cypionate (DEPO-TESTOTERO NE) 200 mg/mL injection Inject 0.5 mL (100 mg total) into the shoulder, thigh, or buttocks every 28 (twenty-eight ) days. 07/13/2024 Active Active Problems Problem Noted Date Diagnosed Date Cancer ([facility] V[facility], [facility] V28) 08/08/2024 Surgical History Surgery Date Site/Laterality Comments COLONOSCOPY Medical History Medical History Date Comments Sleep apnea Bloating Testicle cancer ([facility] V[facility], [facility] V28) Social History Tobacco Use [...] Years (1 of 2 - PCV) 1980 Zoster Vaccines (1 of 2) 1980 COVID-19 Vaccine (2 - Pfizer risk series) 05/31/2021 05/10/2021 Cholesterol Screening (Lipid Panel) 07/09/2024 Colorectal Cancer Screening: Colonoscopy 07/09/2024 Depression Screening 07/09/2024 HIV Screening 07/09/2024 Hepatitis C Screening 07/09/2024 Social Influencers of Health Screening 07/09/2024 Influenza Vaccine (#1) 2025 0, 11/20/2019 DTaP,Tdap,and Td Vaccines (2 - Td [...] [address] [facility] [place] [id number] [employer] [place] [id number] Care Teams Butter Printer Relationship Specialty Start Date End Date Chinmay Srinivasan NP 262 [facility] [place] PCP - General Family Medicine 08/05/24
== END 2025-04-08 10:13 | disposition home or self-care (01) ==
LOC: HO.SH 10:12
PROVIDERS: Visit Provider Nurse Practitioner Family
DX: H90.42 Sensorineural hearing loss, unilateral, left ear, with unrestricted hearing on the contralateral side (principal); H93.12 Tinnitus, left ear
CPT/HCPCS: 92557; 92567

== ENCOUNTER → 2025-04-17 16:00 | Outpatient (BNV) | payer OTHER, SELFPAY | PROVIDERS: PCP Nurse Practitioner Family; Referring Provider Nurse Practitioner Family; Visit Provider Internal Medicine | DX: D72.820 Lymphocytosis (symptomatic) (principal) | CPT/HCPCS: 99204; G2211 ==

== ENCOUNTER 2025-07-02 15:02 | Outpatient (AMB) | payer OTHER, SELFPAY ==
[2025-07-02 15:06] VITALS: BP 100/62; PULSE 70; RESP 16; O2SAT 98
--- NOTE | 2025-07-02 15:06 | A.OFFPC_ITS ---
Vital Signs 07/02/25 15:06 Height 5 ft 9 in BP 100/62 Blood Pressure Location Lt brachial Position Sitting Respiration 16 Pulse 70 Pulse Source Pulse Oximeter Pulse Oximetry (%) 98 Oxygen Delivery Method Room Air Intake Visit Reasons: PE Overdue Composite Laminator Required: No Accompanied by: Self / Same As Patient Allergies No Known Allergies Allergy (Verified 07/02/25 16:07) Medication List - Last Reconciled 07/02/25 by MASON Ahumada testosterone cypionate 200 mg IM Q3W Tobacco use date assessed: 07/02/25 Dental Screening Dental Screen Date: 07/02/25 Did you have a dental visit in the last 12 months?: Yes Did you have a dental problem in the last 6 months where you did not have access to dental care?: No Was dental information given to patient?: Patient has dentist HPI PE Overdue HPI Details History of Present Illness The patient is a 64-year-old male presenting for a physical exam. He reports feeling well and denies any chest pain, dyspnea, abdominal pain, hematochezia, constipation, or diarrhea. He also denies any suicidal or homicidal ideation. The patient has a history of Chronic Lymphocytic Leukemia (CLL) and is under the care of hematology oncology. He has undergone colon cancer screening, which is up to date, and an endoscopy was performed concurrently. He has consulted dermatology in the past year for multiple papular and macular lesions on his upper torso, primarily diagnosed as seborrheic keratosis. Two biopsies were performed on different lesions, both yielding negative results. The patient denies any urinary symptoms but reports occasional urinary frequency. Health Maintenance - Colon cancer screening is up to date. Social History Review of Systems - General: Reports feeling well. - Cardiovascular: Denies chest pain. - Respiratory: Denies dyspnea. - Gastrointestinal: Denies abdominal rodney n, hematochezia, constipation, diarrhea. - Psychiatric: Denies suicidal ideation, homicidal ideation. - Genitourinary: Denies urinary symptoms , reports occasional urinary frequency. Physical Exam General: Cooperative, healthy appearing, comfortable, no acute distress and well developed Orientation: Patient oriented x3 Limitations: No limitations Head: Normal to inspection Ears: Hearing grossly normal bilaterally Nose: Normal external nose present Face and sinus: Normal facial exam Eyes: Appearance normal, both eyes and all related structures Neck: Normal visual inspection and Yes full ROM Respiratory: Normal respiratory effort and able to speak in complete sentences. Clear to auscultation bilaterally Cardiovascular: Regular rate and rhythm. Normal S1 and S2 GI: Normal to inspection. Soft to palpation and nontender : no hernias appreciated, no testicles appreciated Skin: Multiple papular and macular lesions on upper torso, especially seborrheic keratosis noted. Two biopsies were done on different lesions, both negative. Neuro: Patient oriented x3 Extremities: Normal to inspection Results Plan 1. Chronic Lymphocytic Leukemia (Cll) The patient is under the care of hematology oncology for management of CLL. 2. Seborrheic Keratosis The patient has been evaluated by dermatology, and two biopsies of lesions were negative. 3. Preventative Care: Colon Cancer Scree tommie The patient's colon cancer screening is current, and an endoscopy was performed at the same time. 4. physical exam Discussion Notes Patient Instructions [facility] Medical History Hypogonadism in male Elevated PSA BPH (benign prostatic hyperplasia) H/O testicular cancer Low testosterone Family History Father Brain tumor Social History Household Members: Spouse Housing: House Patient Tobacco Use Status: Never used Tobacco e-Cigarette/Vaping Use: Never Used Second Hand Smoke Exposure: No service: No Current occupational status: employed Current occupation: [employer] Current occupational exposures/hazards: No Cognitive needs: No Hearing needs: No Vision needs: No Questionnaire PHQ-9 Over the last 2 weeks, how often have you been bothered by any of the following problems? 1. Little interest or pleasure in doing things: not at all 2. Feeling down, depressed, or hopeless: not at all 3. Trouble falling or staying asleep, or sleeping too much: not at all 4. Feeling tired or having little energy: several days 5. Poor appetite or overeating: not at all 6. Feeling bad about yourself - or that you are a failure or have let yourself or your family down: not at all 7. Trouble concentrating on things, such as reading the newspaper or watching television: not at all 8. Moving or speaking so slowly that other people could have noticed. Or the opposite - being so fidgety or restless that you have been moving around a lot more than usual: not at all 9. Thoughts that you would be better off or of hurting yourself in some way: not at all Total score: 1 Depression Screening Interpretation: Negative Depression Screening Done: Yes 09026 - PHQ-9 Billing: Yes Source: Developed by Drs. Viktor Cruz, Cecy Jauregui, Stevo Kraft and colleagues, with an educational ino from [employer]. Thrive Questionnaire Date Thrive assessed: 04/14/24 I am a: Patient What is your living situation today?: I have a steady place to live Within the past 12 months, did the food you bought not last and you didn't have the money to get more?: Never true Within the past 12 months, did you worry whether your food would run out before you got money to buy more?: Never true Do you have trouble paying for medicines?: No Do you have trouble getting transportation to medical appointments?: No Do you have trouble paying your heating and electricity bill?: No Do you have trouble taking care of your child, family member or friend?: No Do you have trouble with day-to-day activities such as bathing, preparing meals, shopping, managing finances, etc.?: No Are you currently unemployed and looking for a job?: No Are you interested in more education?: No Please select the resources that you would like help with: None Currently or been in a relationship where the following occur: No concerns reported THRIVE Score: 0 AUDIT C Alcohol Use Questionnaire (AUDIT-C) 1. How often do you have a drink containing alcohol?: Monthly or less 2. How many drinks containing alcohol do you have on a typical day when you are drinking?: 1 or 2 3. How often do you have six or more drinks on one occasion?: Never Total Score: 1 REANNA-7 AMB Questionnaire REANNA-7 Date REANNA - 7 assessed: 07/02/25 Feeling nervous, anxious, or on edge: 0 = Not at all Not being able to stop or control worryin = Not at all Worrying too much about different things: 0 = Not at all Trouble relaxin = Not at all Being so restless that it is hard to sit still: 0 = Not at all Becoming easily annoyed or irritable: 0 = Not at all Feeling afraid as if something awful might happen: 0 = Not at all Total REANNA-7 score (0-4 normal; 5-9 mild; 10-14 moderate; 15-21 severe): 0 Source: Developed by Drs. Viktor Cruz, Cecy Jauregui, Stevo Kraft and colleagues, with an educational ino from [employer]. REANNA-7 Assessment Billing REANNA-7 Assessment Tool: REANNA-7 Assessment 84384 Physical exam (Primary Care) Vital Signs: Last Vital Signs Pulse 70 07/02/25 15:06 Resp 16 07/02/25 15:06 BP 100/62 07/02/25 15:06 Pulse Ox 98 07/02/25 15:06 Oxygen Delivery Method Room Air 07/02/25 15:06 Tobacco/Smoking Status: Tobacco use Status Tobacco use date assessed 07/02/25 07/02/25 15:14 Patient Tobacco Use Status Never used Tobacco 07/02/25 15:08 e-Cigarette/Vaping Use Never Used 07/02/25 15:08 PHQ-9: PHQ-9 Score PHQ-9: Total score 1 07/02/25 15:14 Depression Screening Interpretation: Negative Thrive Assessment: Date of Thrive Assessment Date Thrive assessed 04/14/24 07/02/25 15:08 Currently or been in a relationship where the following occur: No concerns reported Coding Level of Care Code Est Pt Prev Care 40-64y(08542) Diagnoses Physical exam Z00.00 Additional Codes REANNA-7 Assessment Billing - REANNA-7 Assessment Tool: REANNA-7 Assessment 60506 ([id number]) PHQ-9 - 78752 - PHQ-9 Billing: Yes ([id number]) Assessment & Plan Assessment & Plan (1) Physical exam: Code(s): Z00.00 - Encounter for general adult medical examination without abnormal findings Category: Medical Plan . Orders: Orders Complete Blood Count Auto Diff Today Z00.00 - Encounter for general adult medical examination without abnormal findings Comprehensive [place]. Panel Fast Today Z00.00 - Encounter for general adult medical examination without abnormal findings Lipid Panel Today Z00.00 - Encounter for general adult medical examination without abnormal findings Prostate Specific Antigen Scr Today Z00.00 - Encounter for general adult medical examination without abnormal findings TSH reflex Free T4 Today Z00.00 - Encounter for general adult medical examination without abnormal findings UA CC w/rflx Micro + Cult Today Z00.00 - Encounter for general adult medical examination without abnormal findings
== END 2025-07-02 16:07 | disposition home or self-care (01) ==
LOC: HO.HMCC 15:03
PROVIDERS: PCP Nurse Practitioner Family; Visit Provider Nurse Practitioner Family
DX: Z00.00 Encounter for general adult medical examination without abnormal findings (principal)

== ENCOUNTER → 2025-07-02 15:02 | Outpatient (BNVA) | payer OTHER, SELFPAY | PROVIDERS: PCP Nurse Practitioner Family; Visit Provider Nurse Practitioner Family | DX: Z00.00 Encounter for general adult medical examination without abnormal findings (principal); C91.10 Chronic lymphocytic leukemia of B-cell type not having achieved remission; L82.1 Other seborrheic keratosis | CPT/HCPCS: 96127 ==

== ENCOUNTER 2025-07-11 06:31 | Outpatient (REF) | payer OTHER, SELFPAY ==
--- OUTSIDE RECORDS SUMMARY | 2025-07-11 06:34 | XMS_ITS | Clinical Summary ---
Author Organization [facility] Address [address] [place] [address] Phone Care Team Providers Care Sugar Drier Name Role Phone Chinmay Srinivasan NP Primary Care Provider Allergies No known active allergies Medications testosterone cypionate (DEPO-TESTOTERO NE) 200 mg/mL injection Inject 0.5 mL (100 mg total) into the shoulder, thigh, or buttocks every 28 (twenty-eight ) days. 07/13/2024 Active Active Problems Problem Noted Date Diagnosed Date Cancer ([facility] V24, [facility] V28) 08/08/2024 Encounters Date Type Department Care Team Description 07/02/2025 Telephone Gastroenterology - 299 [facility] [address] [address] Saud Voss MD from Last 3 Months Surgical History Surgery Date Site/Laterality Comments COLONOSCOPY Medical History Medical History Date Comments Sleep apnea Bloating Testicle cancer ([facility] V24, [facility] V28) Social History Tobacco Use Types Packs/Day Years Used Date Smoking Tobacco: Never Smokeless Tobacco: Never Tobacco Cessation:Counseling Given: Not Answered Alcohol Use Standard Drinks/Week Comments Yes 0 (1 standard drink = 0.6 oz pur e alcohol) socially Interpersonal Safety Answer Date Record ed Physical Abuse Unrecognized value 08/08/2024 Verbal Abuse Unrecognized value 08/08/2024 Sex and Gender Information Value Date [...] Health Maintenance Due Date Last Done Comments Colorectal Cancer Screening: Colonoscopy 1961 Zoster Vaccines (1 of 2) 1980 Pneumococcal Vaccine: 50+ Years (1 of 1 - PCV) 2011 COVID-19 Vaccine (2 - Pfizer risk series) 05/31/2021 05/10/2021 Cholesterol Screening (Lipid Panel) 07/09/2024 HIV Screening 07/09/2024 Hepatitis C Screening 07/09/2024 Social Influencers of Health Screening 07/09/2024 Depression Screening 09/24/2024 Influenza Vaccine (#1) 2025 0, 11/20/2019 DTaP,Tdap,and [...] to complete this topic Insurance [address] [place] [address] [employer] [place] [id number] Care Teams Sugar Drier Relationship Specialty Start Date End Date Chinmay Srinivasan NP [address] [facility] [place] PCP - General Family Medicine 08/05/24
--- OUTSIDE RECORDS SUMMARY | 2025-07-11 06:34 | XMS_ITS | Encounter Summary ---
Author Organization [facility] Address [address] [place] [address] Care Team Providers Care Asbestos Pipe Supervisor Name Role Phone Chinmay Srinivasan NP Primary Care Provider [phone] Reason for Visit * Reason Onset Date Comments fax medical records 07/02/2025 Encounter Details Date Type Department Care Team ([facility] st Contact Info) Description 07/02/2025 Telephone Gastroenterology - [address] [place] [id number] Saud Voss MD [address] [place] [address] Social History Tobacco Use Types Packs/Day Years Used Date Smoking Tobacco: Never Smokeless Tobacco: Never Alcohol Use Standard Drinks/Week Comments Yes 0 [...] PM EST Sexual Orientation Not on file documented as of this encounter Progress Notes * Piper Santiago - 07/08/2025 1:27 PM EDT RECORDS FAXED * Danielle Jimenez - 07/02/2025 3:50 PM EDT Please fax patients last colonoscopy and endoscopy report to his primary care at [facility] to fax [phone]. documented in this encounter Plan of Treatment Not on file documented as of this encounter Visit Diagnoses Not on filedocumented in this encounter Care Teams Asbestos Pipe Supervisor Relationship Specialty Start Date End Date Chinmay Srinivasan NP [address] [place], [place] PCP - General Family Medicine 08/05/24 documented as of this encounter
[2025-07-11 11:36] LABS: Hematocrit 44.8 % (42.0-52.0); Hemoglobin 14.5 g/dl (14.0-18.0); Imm Gran Abs Auto 0.01 X10*3/uL (0.00-0.03); Imm Gran Pct Auto 0.1 % (0.0-0.4); Mean Corpuscular HGB Conc 32.4 g/dl (31.0-36.0); Mean Corpuscular Hemoglobin 31.0 pg (27.0-33.0); Mean Corpuscular Volume 95.7 fL (80.0-98.0); NRBC Abs Auto 0.000 X10*3/uL (0.0-0.012); NRBC Pct Auto 0.0 /100WBC (0.0-0.2); Platelet Count 246 X10*3/uL (160-400); Red Blood Count 4.68 X10*6/uL (4.60-5.80); SCAN SMEAR FLAG 1; White Blood Count 10.0 X10*3/uL (4.8-10.8)
[2025-07-11 11:43] LABS: Appearance Urine Clear; Glucose Urine UA Negative (Negative); PH 8.0 (5.0-9.0); Specific Gravity - Urine <= 1.005 (1.005-1.025)
[2025-07-11 11:52] LABS: Lymphocytes Absolute Auto 7.3 X10*3/uL (1.2-4.9)
[2025-07-11 11:56] LABS: Alanine Aminotransferase 23 U/L (0-40); Albumin Level 4.5 g/dL (3.5-5.0); Alkaline Phosphatase 56 U/L (39-117); Anion Gap 12 (12-20); Aspartate Amino Transferase 30 U/L (5-37); Blood Urea Nitrogen 13 mg/dL (9-16); Calcium 8.6 mg/dL (8.4-10.2); Carbon Dioxide 27 mmol/L (22-29); Chloride 105 mmol/L (96-108); Cholesterol 146 mg/dL (<200); Estimated Glomerular Filt Rate > 60; HDL Cholesterol 50 mg/dL (>40); Potassium 4.1 mmol/L (3.3-5.1); Sodium 140 mmol/L (135-145); Total Protein 6.7 g/dL (6.5-8.0); Triglycerides 53 mg/dL (<150)
[2025-07-11 12:03] LABS: MANUAL DIFF FLAG SCAN
== END 2025-07-11 06:32 | disposition home or self-care (01) ==
LOC: HO.HMGCLDS 06:31
PROVIDERS: PCP Nurse Practitioner Family; Visit Provider Nurse Practitioner Family
DX: Z00.00 Encounter for general adult medical examination without abnormal findings (principal); Z12.5 Encounter for screening for malignant neoplasm of prostate; Z13.29 Encounter for screening for other suspected endocrine disorder; Z13.6 Encounter for screening for cardiovascular disorders
CPT/HCPCS: 36415; 80053; 80061; 81003; 84153; 84443; 85025

== ENCOUNTER 2025-08-08 08:53 | Outpatient (REF) | payer OTHER, SELFPAY ==
[2025-08-08 11:49] LABS: Hematocrit 43.9 % (42.0-52.0); Hemoglobin 14.4 g/dl (14.0-18.0); Imm Gran Abs Auto 0.01 X10*3/uL (0.00-0.03); Imm Gran Pct Auto 0.1 % (0.0-0.4); MANUAL DIFF FLAG SCAN; Mean Corpuscular HGB Conc 32.8 g/dl (31.0-36.0); Mean Corpuscular Hemoglobin 31.6 pg (27.0-33.0); Mean Corpuscular Volume 96.5 fL (80.0-98.0); NRBC Abs Auto 0.000 X10*3/uL (0.0-0.012); NRBC Pct Auto 0.0 /100WBC (0.0-0.2); Platelet Count 253 X10*3/uL (160-400); Red Blood Count 4.55 X10*6/uL (4.60-5.80); SCAN SMEAR FLAG 1; White Blood Count 10.0 X10*3/uL (4.8-10.8)
[2025-08-08 11:54] LABS: Lymphocytes Absolute Auto 6.3 X10*3/uL (1.2-4.9)
[2025-08-08 12:23] LABS: Prostate Specific Antigen 2.86 ng/mL (<0.05-4.0)
== END 2025-08-08 08:54 | disposition home or self-care (01) ==
LOC: HO.HMGCLDS 08:53
PROVIDERS: PCP Nurse Practitioner Family; Visit Provider Physician Assistant
DX: Z12.5 Encounter for screening for malignant neoplasm of prostate (principal); E29.1 Testicular hypofunction
CPT/HCPCS: 36415; 84153; 85025

== ENCOUNTER 2025-09-04 11:43 | Outpatient (REF) | payer OTHER, SELFPAY | END 2025-09-04 11:44 | disposition home or self-care (01) | LOC: HO.HMGCLDS 11:43 | PROVIDERS: PCP Nurse Practitioner Family; Visit Provider Physician Assistant | DX: E29.1 Testicular hypofunction (principal) | CPT/HCPCS: 36415; 84403 ==